=== PATIENT | male | born 1950 | race Caucasian/White ===

== ENCOUNTER → 2017-07-14 | Outpatient (CLI) | payer MEDICARE ==
--- NOTE | 2017-07-14 14:46 | Diagnostic Imaging Report ---
Indication: Cervical adenopathy Single AP view the chest is obtained. COMPARISON: No previous study is available for comparison at this time. FINDINGS: Heart size and pulmonary vasculature are within normal limits, and the lungs are clear, bilaterally. IMPRESSION: Unremarkable chest. Dictated by: Dictated on workstation # [id number]
== END ==
LOC: RAD 14:12
PROVIDERS: ATTEND Internal Medicine
DX: R59.0 Localized enlarged lymph nodes; F17.210 Nicotine dependence, cigarettes, uncomplicated
CPT/HCPCS: 71010

== ENCOUNTER → 2017-07-28 | Outpatient (CLI) | payer MEDICARE ==
[~2017-07-28] MED LIST: CATHETER FLUSH 10 ML SYR IV PRN; IOHEXOL 350 MG/ML 100 ML (OMNIPAQUE 350) VIAL IV ONE; NS 100 ML (IVPB) BAG IV ONE
[2017-07-28 13:04] LABS: CREATININE SERUM 1.38 MG/DL (0.60-1.30)
--- NOTE | 2017-07-28 15:56 | Diagnostic Imaging Report ---
PROCEDURE: CT neck soft tissue with contrast. TECHNIQUE: Multiple contiguous axial images were obtained through the neck after the administration of contrast. INDICATION: Neck mass. 75 mL of Omnipaque-350 is administered intravenously. FINDINGS: There is a nodule measuring 2.2 x 1.3 x 1.8 cm which is abutting the medial inferior aspect of the left parotid gland. It is the uncertain if it is arising from the parotid gland or perhaps is more likely a mildly enlarged lymph node abutting the medial inferior aspect of the gland. It has lobulated contour with smooth margins. There are no significantly enlarged lymph nodes seen otherwise. Right parotid gland demonstrates a 7 mm nonspecific nodule in its inferior aspect. The submandibular glands appear unremarkable. The mucosal pharyngeal space is unremarkable. Symmetric appearance of the vocal cords is seen. The thyroid gland is fairly homogeneous with no focal mass. The jugular and carotid artery enhancement is grossly unremarkable. There is mucosal thickening in the inferior aspect of the maxillary sinus on both sides. There are prominent degenerative changes in the mid to lower cervical spine. The lung apices appear clear. IMPRESSION: 1. There is a 2.2 cm oval lobulated lesion abutting the inferior medial aspect of the left parotid gland. This could be arising from the parotid gland itself or more likely a reactive mildly enlarged upper cervical lymph node deep to the lower aspect of the left parotid gland. 2. Nonspecific 7 mm nodule in the lower aspect of the right parotid gland might represent an intraparotid lymph node. 3. Clinical follow-up is recommended. If these lesions continue to enlarge, then consider ultrasound evaluation and FNA if needed. Dictated by: Dictated on workstation # [id number]
== END ==
LOC: RAD 12:29
PROVIDERS: ATTEND Otolaryngology Otolaryngology/Facial Plastic Surgery
DX: R22.1 Localized swelling, mass and lump, neck (principal)
CPT/HCPCS: 36415; 70491; 82565; 84520; 86611

== ENCOUNTER → 2017-08-27 | Outpatient (CLI) | payer MEDICARE ==
[~2017-08-27] VITALS: Ht 170.2 cm; Wt 62.1 kg
[2017-08-27 11:43] VITALS: BP 127/80
[2017-08-27 12:00] VITALS: BP 120/67
--- NOTE | 2017-08-27 12:45 | Diagnostic Imaging Report ---
EXAMINATION: Dedicated parotid ultrasound performed with ultrasound guidance provided for FNA performed by Dr. Galeano. Indication: Thyroid nodule FINDINGS: Ultrasound images demonstrate a left parotid nodule. IMPRESSION: Ultrasound guidance provided for left parotid nodule FNA. Dictated by: Dictated on workstation # [id number]
== END ==
LOC: RAD 10:38
PROVIDERS: ATTEND Otolaryngology Otolaryngology/Facial Plastic Surgery
DX: R22.1 Localized swelling, mass and lump, neck (principal)
CPT/HCPCS: 76942

== ENCOUNTER 2017-09-27 09:22 | Outpatient (CLI) | payer MEDICARE ==
[~2017-09-27] VITALS: Ht 170.2 cm; Wt 77.2 kg
[2017-09-27] MEDS ORDERED: HYDR25TA4 PO (09:34)
[2017-09-27] MEDS ORDERED: DIPH25CA79 PO (09:34)
[2017-09-27] MEDS ORDERED: GEMF600T PO (09:34)
[2017-09-27] MEDS ORDERED: ALPR0.25 PO (09:34)
[2017-09-27] MEDS ORDERED: ACET-2267 PO (09:34)
[2017-09-27] MEDS ORDERED: LOSA100T28 PO (09:34)
[2017-09-27] MEDS ORDERED: RANI75TA21 PO (09:34)
[2017-09-27 09:37] VITALS: BP 129/79
[2017-09-27 09:53] LABS: BASOPHILS # (AUTO) 0.1 10^3/uL (0.0-0.1); BASOPHILS % (AUTO) 1 % (0-10); EOSINOPHILS % (AUTO) 10 % (0-10); LYMPHOCYTES # (AUTO) 2.6 X 10^3 (1.0-4.0); LYMPHOCYTES % (AUTO) 27 % (12-44); MEAN CORPUSCULAR HEMOGLOBIN 32 PG (25-34); MEAN CORPUSCULAR HGB CONC 35 G/DL (32-36); MEAN CORPUSCULAR VOLUME 92 FL (80-99); MEAN PLATELET VOLUME 12.1 FL (7.4-10.4); MONOCYTES # (AUTO) 1.1 X 10^3 (0.0-1.0); MONOCYTES % (AUTO) 12 % (0-12); NEUTROPHILS # (AUTO) 4.8 X 10^3 (1.8-7.8); NEUTROPHILS % (AUTO) 51 % (42-75); PLATELET COUNT 228 10^3/uL (130-400); RED BLOOD COUNT 4.39 10^6/uL (4.35-5.85); RED CELL DISTRIBUTION WIDTH 12.5 % (10.0-14.5); WHITE BLOOD COUNT 9.5 10^3/uL (4.3-11.0)
[2017-09-27 10:10] LABS: CALCIUM 9.1 MG/DL (8.5-10.1); CREATININE SERUM 1.25 MG/DL (0.60-1.30); POTASSIUM 3.9 MMOL/L (3.6-5.0)
== END 2017-09-27 11:36 ==
LOC: PREOP 09:22
PROVIDERS: ATTEND Otolaryngology Otolaryngology/Facial Plastic Surgery
DX: Z01.810 Encounter for preprocedural cardiovascular examination (principal); Z01.811 Encounter for preprocedural respiratory examination; Z01.812 Encounter for preprocedural laboratory examination; Z11.2 Encounter for screening for other bacterial diseases; R22.1 Localized swelling, mass and lump, neck
CPT/HCPCS: 36415; 80048; 85025; 87081; 93005

== ENCOUNTER 2017-10-01 08:03 | Day surgery (SDC) | payer MEDICARE ==
[~2017-10-01] VITALS: Ht 170.2 cm; Wt 77.2 kg
[~2017-10-01 08:03] MED LIST changes: +ACET-2267 PO; +ALPR0.25 PO; -CATHETER FLUSH 10 ML SYR IV PRN; +DIPH25CA79 PO; +GEMF600T PO; +HYDR25TA4 PO; -IOHEXOL 350 MG/ML 100 ML (OMNIPAQUE 350) VIAL IV ONE; +LOSA100T28 PO; -NS 100 ML (IVPB) BAG IV ONE; +RANI75TA21 PO
--- OUTSIDE RECORDS SUMMARY | 2017-10-01 08:06 | XMS REPORT ---
Author Author MICHELLE SALINAS [facility] Address [address] [place] [address] Care Team Providers Care Air Compressor Mechanic Name Role Phone MICHELLE SALINAS Unavailable PROBLEMS Type Condition ICD9-CM Code [id number]-EP Code Onset Dates Condition Status SNOMED Code Assessment Encounter for immunization Z23 Sep, Active [id number] ALLERGIES Unknown Allergies SOCIAL HISTORY No smoking Hx information available PLAN OF CARE VITAL SIGNS MEDICATIONS Unknown Medications RESULTS No Results PROCEDURES Procedure Date Ordered Related Diagnosis Body Site HEP B (ADULT) Sep 22, 2016 SINGLE IMMUNIZATION ADMIN Sep 22, 2016 IMMUNIZATIONS Vaccine Route Administration Date Status HEP B (ADULT) IM Intramuscular Sep 22, 2016 Administered
--- OUTSIDE RECORDS SUMMARY | 2017-10-01 08:06 | XMS REPORT ---
Author Author MICHELLE SALINAS [facility] Address [address] [place] [address] Care Team Providers Care Engineer [employer] Name Role Phone MICHELLE SALINAS Unavailable PROBLEMS Unknown Problems ALLERGIES No Information SOCIAL HISTORY Never Assessed PLAN OF CARE VITAL SIGNS MEDICATIONS Unknown Medications RESULTS No Results PROCEDURES Procedure Date Ordered Result Body Site HEP B (ADULT) February 17, 2017 SINGLE IMMUNIZATION ADMIN February 17, 2017 IMMUNIZATIONS Vaccine Route Administration Date Status HEP B (ADULT) IM Intramuscular February 17, 2017 Administered
--- OUTSIDE RECORDS SUMMARY | 2017-10-01 08:06 | XMS REPORT ---
Author Author MICHELLE SALINAS [facility] Address [address] [place] [address] Care Team Providers Care Desktop Manager Name Role Phone MICHELLE SALINAS Unavailable PROBLEMS Unknown Problems ALLERGIES No Information SOCIAL HISTORY Never Assessed PLAN OF CARE VITAL SIGNS MEDICATIONS Unknown Medications RESULTS No Results PROCEDURES Procedure Date Ordered Result Body Site HEP B (ADULT) Jul 20, 2016 SINGLE IMMUNIZATION ADMIN Jul 20, 2016 IMMUNIZATIONS Vaccine Route Administration Date Status HEP B (ADULT) IM Intramuscular Jul 20, 2016 Administered
[2017-10-01 08:24] VITALS: BP 132/77
[2017-10-01] MEDS: LACTATED RINGERS 1,000 ML IV PRN ×2 (08:27→11:14)
[2017-10-01] MEDS ORDERED: ONDANSETRON 4 MG/2 ML (SDV) Z0FRAN IV ONE (08:45)
[2017-10-01] MEDS ORDERED: FAMOTIDINE 20MG/2ML IV (PEPCID) IV ONE (08:45)
[2017-10-01] MEDS ORDERED: ROCURONIUM 50 MG/5 ML (ZEMURON) VIAL IV ONE (09:57)
[2017-10-01] MEDS ORDERED: proPOfol 200 MG/20 ML (DIPRIVAN) VIAL IV ONE (09:57)
[2017-10-01] MEDS ORDERED: LACTATED RINGERS 1,000 ML IV ONE (09:57)
[2017-10-01] MEDS ORDERED: LIDOCAINE PF 2% 5 ML (XYLOCAINE) VIAL ONE (09:57)
[2017-10-01] MEDS ORDERED: fentaNYL INJECTION 100 MCG/2 ML AMP ONE (09:57)
[2017-10-01] MEDS ORDERED: ONDANSETRON 4 MG/2 ML (SDV) Z0FRAN ONE (09:57)
[2017-10-01] MEDS ORDERED: MIDAZOLAM 2 MG/2 ML (VERSED) VIAL ONE (09:57)
[2017-10-01] MEDS ORDERED: LIDOCAINE JELLY 2% (XYLOCAINE) 5 ML TUBE ONE (09:57)
--- NOTE | 2017-10-01 10:38 | Progress Note-Pre Operative ---
Pre-Operative Progress Note H&P Reviewed The H&P was reviewed, patient examined and no changes noted. Date Seen by Provider: Oct 01, 2017 Time Seen by Provider: 10:20 Date H&P Reviewed: Oct 01, 2017 Time H&P Reviewed: 10:20 Pre-Operative Diagnosis: Left neck mass EDMUNDO ISLAS MD Oct 01, 2017 10:38 am
[2017-10-01] MEDS ORDERED: LIDOCAINE/EPI 1%-1:200,000 (XYLOCAINE) 10 ML VIAL ONE (10:40)
[2017-10-01] MEDS ORDERED: MUPIROCIN 2% OINT 22 GM (BACTROBAN) TUBE ONE (11:22)
--- NOTE | 2017-10-01 11:36 | Progress Note-Post Operative ---
Post-Operative Progess Note Surgeon (s)/Sales Training Representative (s) Surgeon EDMUNDO ISLAS MD Sales Training Representative n/a Pre-Operative Diagnosis Left neck mass Post-Operative Diagnosis same Post-Op Procedure Note Date of Procedure: Oct 01, 2017 Name of Procedure Performed: Excison of Lft Neck Mass/Inf Parotid Mass Description & Findings Description and Findings: n/a Anesthesia Type get Estimated Blood Loss minimal Packing none. 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
[2017-10-01] MEDS ORDERED: GLYCOPYRROLATE 0.2 MG/ML (ROBINUL) 2 ML VIAL ONE (11:38)
[2017-10-01] MEDS ORDERED: NEOSTIGMINE (BLOXIVERZ ) 1 MG/1ML 10 ML VIAL ONE (11:38)
[2017-10-01] MEDS ORDERED: SEVOFLURANE (ULTANE) 15 ML INHAL SOLN ONE (11:40)
[2017-10-01] MEDS ORDERED: HYDROcodone/APAP 5 MG/325 MG (LORTAB) TAB PO PRN (11:45)
[2017-10-01] MEDS ORDERED: ACETAMINOPHEN 325 MG TABLET/CAPLET (TYLENOL) PO PRN (11:45)
[2017-10-01] MEDS ORDERED: PHENYLEPHRINE 100 MCG/ML 10 ML (ANESTHESIA) SYR ONE (11:54)
[2017-10-01] MEDS ORDERED: ONDANSETRON 4 MG/2 ML (SDV) Z0FRAN IVP PRN (12:00)
[2017-10-01] MEDS ORDERED: LIDOCAINE/EPI 1%-1:200,000 (XYLOCAINE) 10 ML VIAL INJ ONE (12:00)
[2017-10-01] MEDS ORDERED: morphine INJ 10 MG/ML 1ML (SYR OR VIAL) IVP PRN (12:00)
[2017-10-01] MEDS ORDERED: MEPERIDINE (DEMEROL) INJ 50 MG/ML IVP PRN (12:00)
[2017-10-01 12:40] VITALS: BP 135/80
[2017-10-01 13:10] VITALS: BP 134/79
[2017-10-01 13:40] VITALS: BP 131/76
[2017-10-01] MEDS ORDERED: MUPIROCIN 2% OINT 22 GM (BACTROBAN) TUBE TOP SCH (21:00)
== END 2017-10-01 13:40 | disposition home or self-care (01) ==
LOC: SDC 08:03
PROVIDERS: ATTEND Otolaryngology Otolaryngology/Facial Plastic Surgery
DX: D11.9 Benign neoplasm of major salivary gland, unspecified (principal); I10 Essential (primary) hypertension; F17.210 Nicotine dependence, cigarettes, uncomplicated; K21.9 Gastro-esophageal reflux disease without esophagitis; Z79.899 Other long term (current) drug therapy

== ENCOUNTER 2018-05-02 09:00 | Outpatient (CLI) | payer MEDICARE ==
[~2018-05-02] VITALS: Ht 180.3 cm; Wt 74.8 kg
[2018-05-03] MEDS ORDERED: OMEP20CA12 PO (14:36)
== END 2018-05-02 11:14 | disposition home or self-care (01) ==
LOC: PREOP 09:00
PROVIDERS: ATTEND Internal Medicine
DX: Z01.818 Encounter for other preprocedural examination (principal)

== ENCOUNTER 2018-05-03 12:52 | Day surgery (SDC) | payer MEDICARE ==
--- NOTE | 2018-04-29 15:12 | HISTORY AND PHYSICAL ---
DATE OF SERVICE: HISTORY OF PRESENT ILLNESS: The patient is a 67-year-old white male who presented to my office on 04/28/2018 reporting a 5-day history of dysphagia predominantly to solids. He has had some mild discomfort with this. He does have a past history of erosive esophagitis. I last performed EGD on him in 2003, at which time, he had evidence for erosive esophagitis without evidence for Cannon's change. He had some stricture formation and underwent dilatation. He has done relatively well since that time. He had a pretty unremarkable screening colonoscopy in 2006. He had been in his usual state of health with no reports of weight loss, epigastric pain, melena or bright red blood per rectum with stable energy level. He has noted no bowel habit change and he has not had difficulty with dysphagia with liquids. He is not aware of any family history for esophageal cancer. PAST MEDICAL HISTORY: Significant for hypertension and hyperlipidemia predominantly type 4. MEDICATIONS ON ADMISSION: Include losartan 100 mg daily, gemfibrozil 600 mg b.i.d., hydrochlorothiazide 25 mg daily and Zantac 150 mg b.i.d. PAST SURGICAL HISTORY: Significant for Warthin's tumor excision in 09/2017. SOCIAL HISTORY: The patient does have a 30+ pack year smoking history with no reported significant past drinking history. PHYSICAL EXAMINATION: GENERAL: Reveals a white male who appears to be in no acute distress. VITAL SIGNS: Weight is 167.2 pounds, is up 1.2 pounds; blood pressure 120/80, heart rate 72 and regular. CHEST: Clear to auscultation. CARDIOVASCULAR: Reveals regular rate and rhythm without murmur, S3 or S4. ABDOMEN: Soft, supple without mass, organomegaly or tenderness. ASSESSMENT: Dysphagia to solids likely recurrent erosive esophagitis with stricture formation. I advised the patient that we should get him in to be scoped tomorrow, but he declined stating that he was too busy. I advised that he stay on a liquid diet, as any solids risk obstruction that would lead to pain and inability to swallow and need for emergency room visits and likely urgent EGD evaluation. He did agree to the 05/03/2018, 2:00 in the afternoon. He will be n.p.o. after liquid breakfast no later than 8:00. Job ID: [id number] DocumentID: [id number] Dictated Date: 04/28/2018 16:44:57 Instructional Leader Date: 04/28/2018 17:48:23 Dictated By: MARIEL JACKSON MD
[~2018-05-03] VITALS: Ht 180.3 cm; Wt 74.8 kg
[2018-05-03] MEDS ORDERED: D5 LR IV SOLUTION 1,000 ML IV STA (13:01)
[2018-05-03] MEDS ORDERED: D5 LR IV SOLUTION 1,000 ML IV ONE (13:06)
[2018-05-03] MEDS ORDERED: MIDAZOLAM 2 MG/2 ML (VERSED) VIAL IVP PRN (13:15)
[2018-05-03] MEDS ORDERED: HURRICAINE EXT TUBE (BENZOCAINE) XX PRN (13:15)
[2018-05-03] MEDS ORDERED: LIDOCAINE JELLY 2% (XYLOCAINE) 5 ML TUBE MM PRN (13:15)
[2018-05-03 13:16] VITALS: BP 130/77
[2018-05-03] MEDS ORDERED: HURRICAINE EXT TUBE (BENZOCAINE) ONE (14:03)
[2018-05-03] MEDS ORDERED: MIDAZOLAM 2 MG/2 ML (VERSED) VIAL ONE ×2 (14:03)
[2018-05-03] MEDS ORDERED: fentaNYL INJECTION 100 MCG/2 ML AMP ONE (14:03)
[2018-05-03] MEDS ORDERED: LIDOCAINE JELLY 2% (XYLOCAINE) 5 ML TUBE ONE (14:03)
[2018-05-03] MEDS: fentaNYL INJECTION 100 MCG/2 ML AMP IVP PRN ×2 (14:06→14:09)
--- NOTE | 2018-05-03 14:34 | Pre-Op Note & Conscious Sedat ---
Pre-Operative Progress Note H&P Reviewed The H&P was reviewed, patient examined and no changes noted. Date H&P Reviewed: May 03, 2018 Time H&P Reviewed: 13:50 Conscious Sedation Pre-Proced ASA Class: 2 Airway Mallampati Classification: ([place] appropriate class) I. II. III, IV Lungs Heart ASA score ASA 1: a normal healthy patient ASA 2: a patient with a mild systemic disease (mid diabetes, controlled hypertension, obesity ASA 3: a patient with a severe systemic disease that limits activity (angina , COPD, prior Myocardial infarction) ASA 4: a patient with an incapacitating disease that is a constant threat to life (CHF, renal failure) ASA 5: a moribund patient not expected to survive 24 hrs. (ruptured aneurysm) ASA 6: a declared brain patient whose organs are being harvested. For emergent operations, add the letter E after the classification Grade 1 Sedation Plan: Analgesia, Amnesia, Plan communicated to team members, Discussed options with patient/fam, Discussed risks with patient/fam Note The patient is an appropriate candidate to undergo the planned procedure, sedation, and anesthesia. The patient immediately re-assessed prior to indication. MARIEL JACKSON MD May 03, 2018 14:34
[2018-05-03] MEDS ORDERED: OMEP20CA12 PO (14:36)
[2018-05-03 15:09] VITALS: BP 147/74
[2018-05-03 15:15] VITALS: BP 147/74
--- NOTE | 2018-05-03 20:42 | OPERATIVE REPORT ---
DATE OF SERVICE: EGD SUMMARY EGD was performed for evaluation of dysphagia predominantly to solids. The patient was placed in left lateral decubitus position. The endoscope was inserted in the oral cavity under direct visualization, the esophagus was intubated. The scope was passed down the esophagus to the level of the GE junction due to the benign appearing stricture with circumferential ulceration. The lumen was narrowed such that the scope was unable to be advanced. A balloon dilator was placed across the stricture without difficulty as there still was a small opening visible. It was dilated to 60-[place]ic size and post-procedure, there was the usual amount of small volume blood loss, no more than several mls. I was then easily able to advance the scope into the stomach, through the pylorus and inspected the duodenal bulb and second portion of the duodenum. Careful inspection was made as the scope was withdrawn. The patient tolerated the procedure well with no discomfort during dilatation or any other time during the procedure. The posterior hypopharynx, arytenoid aperture, true and false vocal folds were unremarkable without evidence for erythema or exudate. No edema was noted. Proximal and mid esophagus was unremarkable. The Z-line appeared to be normal distance from the incisural orifice about 41 cm. There was circumferential ulceration and stricture formation as noted above without overt evidence for malignancy. Cannon's changes were not identified. Four quadrant biopsies were obtained and submitted for histopathology after balloon dilatation. There was no significant blood loss. The cardia on retroflexed views revealed no abnormality. There did not appear to be evidence for significant hiatal hernia. The fundus, antrum, pylorus, pyloric channel, duodenal bulb and second portion of duodenum were unremarkable as well. ASSESSMENT: LA grade D erosive esophagitis with benign appearing stricture formation is present. There was no visual evidence to suggest malignancy or Cannon's change. Biopsies were obtained and submitted for histopathology. Advised the patient to remain on a soft solid diet for the next 2 to 3 days with careful attention to mastication, small bites flushing down with sips of water and not continuing to eat if there is any sensation of dysphagia. We did initiate omeprazole. He will take 20 mg now and then 20 mg before breakfast ideally [id number] daily. We discussed the need to continue this indefinitely with surveillance EGD. Recommendations being based on biopsy results and how the patient is doing. I did discuss that there is a high likelihood for future recurrence even on medical management with acid suppression. Job ID: [id number] DocumentID: [id number] Dictated Date: 05/03/2018 14:42:30 Mica Builder Date: 05/03/2018 20:41:59 Dictated By: MARIEL JACKSON MD MTDD
== END 2018-05-03 15:15 | disposition home or self-care (01) ==
LOC: ENDO 12:52
PROVIDERS: ATTEND Internal Medicine
DX: K22.10 Ulcer of esophagus without bleeding (principal); K22.2 Esophageal obstruction; I10 Essential (primary) hypertension

== ENCOUNTER → 2021-05-21 | Outpatient (CLI) | payer MEDICARE, OTHER ==
[~2021-05-21] MED LIST changes: -LOSA100T28 PO; +LOSA100T57 PO; +OMEP20CA18 PO; +RANI-324 PO; -RANI75TA21 PO
--- NOTE | 2021-05-21 15:03 | Diagnostic Imaging Report ---
EXAMINATION: Left foot 3 views HISTORY: Cellulitis and ulcer. COMPARISON: None available. FINDINGS: There is soft tissue swelling about the left great toe with gas in the soft tissues on the undersurface, suggestive of an ulcer. No erosion is seen to indicate osteomyelitis. No acute fracture is seen. Alignment is normal. IMPRESSION: 1. Soft tissue swelling and gas in the soft tissues of the left great toe, correlating to the history of cellulitis and ulcer. No erosion is seen to indicate osteomyelitis. Dictated by: Dictated on workstation # [id number]
== END ==
LOC: RAD 14:12
PROVIDERS: ATTEND Internal Medicine
DX: L03.032 Cellulitis of left toe (principal); L97.529 Non-pressure chronic ulcer of other part of left foot with unspecified severity
CPT/HCPCS: 73630

== ENCOUNTER → 2021-12-01 | Outpatient (CLI) | payer MEDICARE, OTHER ==
--- NOTE | 2021-12-01 16:05 | Diagnostic Imaging Report ---
INDICATION: Cough with decreased breath sounds in left lung base. EXAMINATION: Two view chest on 12/01/2021. COMPARISON: 07/14/2017. FINDINGS: The cardiomediastinal silhouette is unremarkable. The pulmonary vasculature is within normal limits. The lungs and pleural spaces are clear. IMPRESSION: No evidence of an acute cardiopulmonary process. Dictated by: Dictated on workstation # [id number]
== END ==
LOC: RAD 12:41
PROVIDERS: ATTEND Internal Medicine
DX: R06.02 Shortness of breath (principal); R05.9 Cough, unspecified
CPT/HCPCS: 71046

== ENCOUNTER → 2023-04-05 | Outpatient (CLI) | payer MEDICARE ==
[~2023-04-05] MED LIST changes: -LOSA100T57 PO; +LOSA100T58 PO
== END ==
LOC: CARD 13:58
PROVIDERS: ATTEND Internal Medicine
DX: I51.7 Cardiomegaly (principal); I35.1 Nonrheumatic aortic (valve) insufficiency
CPT/HCPCS: 93306

== ENCOUNTER 2023-06-28 14:30 | Outpatient (CLI) | payer MEDICARE ==
[~2023-06-28] VITALS: Ht 177.8 cm; Wt 75.0 kg
[2023-06-28] MEDS ORDERED: LIDOCAINE UROJET 2% GEL 10 ML PKG ONE (14:47)
[2023-06-28 15:30] VITALS: BP 145/74
== END 2023-06-28 15:30 | disposition home or self-care (01) ==
LOC: SDC 14:30
PROVIDERS: ATTEND Internal Medicine
DX: R33.9 Retention of urine, unspecified (principal)

== ENCOUNTER 2023-08-11 14:53 | Day surgery (SDC) | payer MEDICARE ==
[~2023-08-11] VITALS: Ht 177.8 cm; Wt 75.0 kg
[2023-08-11] MEDS ORDERED: LIDOCAINE UROJET 2% GEL 10 ML PKG ONE (15:04)
[2023-08-11] MEDS ORDERED: LIDOCAINE UROJET 2% GEL 10 ML PKG TOP ONE (16:00)
[2023-08-11 16:10] VITALS: BP 157/72
[2023-08-11 16:15] LABS: BILIRUBIN,URINE NEGATIVE (NEGATIVE); CLARITY,URINE SL CLOUDY; COLOR,URINE YELLOW; GLUCOSE, URINE (UA) NEGATIVE (NEGATIVE); KETONES,URINE NEGATIVE (NEGATIVE); LEUKOCYTE ESTERASE ,URINE 2+ (NEGATIVE); NITRITE,URINE POSITIVE (NEGATIVE); PH,URINE 5.5 (5-9); PROTEIN,URINE NEGATIVE (NEGATIVE)
[2023-08-11 16:16] LABS: BACTERIA,URINE MODERATE /HPF; RBC,URINE 0-2 /HPF; WBC,URINE 50-100 /HPF; YEAST,URINE MODERATE /HPF
== END 2023-08-11 16:10 | disposition home or self-care (01) ==
LOC: SDC 14:53
PROVIDERS: ATTEND Internal Medicine
DX: N13.9 Obstructive and reflux uropathy, unspecified (principal)
CPT/HCPCS: 81000; 87077; 87088; 87186; G0463

== ENCOUNTER → 2023-08-23 | Outpatient (CLI) | payer MEDICARE ==
[2023-08-23 12:38] LABS: CREATININE SERUM 1.4 MG/DL (0.60-1.30)
[2023-08-23] MEDS: NS 100 ML (IVPB) BAG IV ONE (13:05)
[2023-08-23] MEDS: IOHEXOL 350 MG/ML 100 ML (OMNIPAQUE 350) VIAL IV ONE (13:05)
--- NOTE | 2023-08-23 16:40 | Diagnostic Imaging Report ---
PROCEDURE: CT abdomen and pelvis with and without contrast. TECHNIQUE: Precontrast acquisitions were acquired through the abdomen and pelvis. Multiple contiguous axial images were obtained through the abdomen and pelvis after the administration of intravenous contrast. Auto Exposure Controls were utilized during the CT exam to meet ALARA standards for radiation dose reduction. INDICATION: 73-year-old male presents with abdominal pain, urinary retention. COMPARISONS: None. FINDINGS: Lung bases are clear. Cardiac contour is normal. Coronary calcifications are present. Liver shows uniform attenuation. Gallbladder shows no radiopaque stones, sludge, wall thickening or pericholecystic fluid. Spleen, GE junction, stomach and duodenal sweep are unremarkable. Pancreas shows sharp margins. Adrenals are normal. Kidneys appear normal size, position and contour. There is symmetrical perfusion and excretion of contrast. There is minimal bilateral perinephric stranding which is probably within normal limits. Both ureters seen through their course and appear unremarkable. Bladder is partially decompressed by Wakefield catheter. Prostate is markedly enlarged and measures 6 cm in diameter. The nonopacified loops of small bowel are normal. There are fluid-filled loops of distal small bowel and proximal large bowel with some liquid stool seen throughout the colon to the level of sigmoid colon. There is more formed fecal material in the distal sigmoid colon to the rectum. There is no organomegaly or abnormal calcification. Nonaneurysmal aortic calcifications are seen extending iliac and femoral arteries. Bone windows show severe leftward sclerotic curvature over the lumbar spine with compensatory marginal osteophytes. There is also chronic lateral compression of several vertebral bodies. There is no lytic or blastic changes. IMPRESSION: 1. Mild COPD 2. Few coronary calcifications. 3. Some minimal bilateral perinephric stranding nonspecific. There is no evidence of obstructive uropathy. 4. Incidental 3.5 cm Bosniak classification 2 cyst inferior pole of the right kidney. 5. Prostatic enlargement. Correlate with PSA may be of further value. 6. Severe sclerotic curvature of the lumbar spine with compensatory marginal osteophytes. 7. Ileus versus gastroneuritis with fluid-filled loops of small and large bowel. Additional nonemergent findings as described above. Dictated by: Dictated on workstation # [id number]
== END ==
LOC: RAD 11:55
PROVIDERS: ATTEND Specialist
DX: J44.9 Chronic obstructive pulmonary disease, unspecified (principal); I25.10 Atherosclerotic heart disease of native coronary artery without angina pectoris; N28.1 Cyst of kidney, acquired; N40.0 Benign prostatic hyperplasia without lower urinary tract symptoms; R33.9 Retention of urine, unspecified; M25.78 Osteophyte, vertebrae
CPT/HCPCS: 36415; 74178; 82565

== ENCOUNTER 2023-09-21 05:28 | Outpatient (CLI) | payer MEDICARE ==
[~2023-09-21] VITALS: Ht 177.8 cm; Wt 77.3 kg
[2023-09-21] MEDS ORDERED: FINA5TAB6 PO (11:33)
[2023-09-21] MEDS ORDERED: OMEP20CA18 PO (11:33)
[2023-09-21] MEDS ORDERED: TMSL.4C PO (11:33)
== END 2023-09-21 12:02 | disposition home or self-care (01) ==
LOC: PREOP 05:28
PROVIDERS: ATTEND Specialist
DX: Z01.818 Encounter for other preprocedural examination (principal)